=== PATIENT | female | born 1975 | race Caucasian/White ===

== ENCOUNTER → 2016-05-24 | Outpatient (CLI) | payer OTHER | LOC: FIMAGING 09:53 | PROVIDERS: ATTEND Advanced Practice Midwife | DX: O09.523 Supervision of elderly multigravida, third trimester (principal); Z3A.31 31 weeks gestation of pregnancy ==

== ENCOUNTER → 2016-06-21 | Outpatient (CLI) | payer OTHER | LOC: FIMAGING 10:01 | PROVIDERS: ATTEND Advanced Practice Midwife | DX: O09.523 Supervision of elderly multigravida, third trimester (principal); Z3A.33 33 weeks gestation of pregnancy ==

== ENCOUNTER 2016-07-26 12:30 | Inpatient (IN) | payer OTHER ==
--- NOTE | 2016-07-26 19:55 | GHP ---
[f rep st] HISTORY AND PHYSICAL DATE OF ADMISSION: 07/27/2016 HISTORY: The patient is a 40-year-old 6, para 4, with an EDC of 2016, who will be 39 weeks tomorrow on 07/27/2016, which is her scheduled 5th C- section. The patient has routinely been seen at [facility] since 8 weeks and 2 days, had an early bedside ultrasound that confirmed dates, an EDC of 08/03/2016. PAST MEDICAL HISTORY: The patient has a 6-month history of cystitis with a Paragard IUD, history of pyelonephritis in 2009, history of depression and anxiety. PAST SURGICAL HISTORY: C-sections x4, one in 2002, 2004, 2007, 2012. Two cysts removed from left wrist in 1996 and 1998, a T and A in 1997, and a right cyst removal from right wrist in 2012. PRESENT : See history. Patient is AMA. Rh negative, and needed a followup growth ultrasound at 36 weeks. PREVIOUS HISTORY: In 09/2002 a male at 7 pounds 6 ounces, 38 weeks, 32 hours , spinal, failure to progress, induced secondary to elevated blood pressure. In 12/2004 a female, weight 8 pounds at 40 weeks, a with a spinal, a repeat . In 09/2007, a female at 7 pounds 1 ounce 39 , 5, a , spinal. In 04/2011, an early spontaneous AB. In 03/2012 a female who weighed 7 pounds, 4 ounce at 39 weeks, a , that baby had an omphalocele. SOCIAL HISTORY: The patient is not a tobacco user. Denies drugs. Kristopher is her significant other and he is the father of all of her children. ALLERGIES: She is not allergic to any medications. MEDICATIONS: The medications that she is taking are vitamins, DHEA, and fish oil. FAMILY HISTORY: Noncontributory. LABORATORY DATA: The patient is O negative. Antibody negative. RPR is nonreactive. Rubella is immune. Hepatitis is negative. HIV is negative. Pap is within normal limits. Gonorrhea and chlamydia are negative. The patient declined AFP in the first-trimester screening, and patient had the Verifi done in her 2nd trimester. PHYSICAL ASSESSMENT: GENERAL: The patient is awake, alert, oriented x3. LUNGS : Clear bilaterally. ABDOMEN: Bowel sounds are positive in all 4 quadrants. EXTREMITIES: DTRs are 1+ bilaterally, no clonus, and Homans sign is negative bilaterally. PLAN OF CARE: Tomorrow on 07/27/2016, POC is a repeat . /[id number]/MODL MTDD
[2016-07-27] MEDS ORDERED: CITRIC ACID/SODIUM CITRATE 30 ML UDCUP PO ONE (08:08)
[2016-07-27] MEDS ORDERED: LR 500 ML IV ONE (08:08)
[2016-07-27] MEDS ORDERED: OLIVE OIL 118 ML BTL ONE (08:23)
[2016-07-27] MEDS ORDERED: LIDOCAINE 1% 300 MG/30 ML SDV ONE (08:23)
[2016-07-27] MEDS ORDERED: AMMONIA AROMATIC 1 EACH AMP IH ONE (08:23)
[2016-07-27] MEDS ORDERED: MISOPROSTOL 200 MCG TAB ONE (08:24)
[2016-07-27] MEDS ORDERED: CEFAZOLIN 2 GM/DEXTROSE/100 ML BAG IV ONE (08:24)
[2016-07-27 08:28] LABS: ADD DIFF? YES; ADD MORPH? NO; ADD SCAN? NO; ATYPICAL LYMPHOCYTE FLAG 10 (0-99); FRAGMENT RBC FLAG 0 (0-99); HEMATOCRIT 36.8 % (38.0-47.0); HEMOGLOBIN 12.5 g/dL (12.6-16.3); LEFT SHIFT FLG 30 (0-99); LIPEMIA HEMOLYSIS FLAG 90 (0-99); MEAN CELL HEMOGLOBIN 32.2 pg (27.9-34.1); MEAN CELL VOLUME 94.8 fL (81.5-99.8); PLATELET CLUMPS FLAG 0 (0-99); PLATELET COUNT 218 10^3/uL (150-400); RED BLOOD CELL COUNT 3.88 10^6/uL (4.18-5.33); RED CELL DISTRIBUTION WIDTH 14.2 % (11.5-15.2)
[2016-07-27] MEDS ORDERED: HEMABATE 250 MCG/1 ML AMP IM ONE (08:29)
[2016-07-27] MEDS ORDERED: METHYLERGONOVINE MAL 0.2 MG/ML INJ ONE (08:30)
[2016-07-27] MEDS ORDERED: ceFAZolin 2 GM/DEXTROSE 100 ML IV ONE (08:30)
--- NOTE | 2016-07-27 09:21 | PREANESOB ---
Obstetric Pre-Anesthesia Info - General Info Proposed Procedure: Repeat C Section. : 6 Para: 4 WBD: 39 - Info Status: Full Term Monitors: External FHR Baseline (bpm): 135 FHR Pattern: Reassuring - Labor Status Indications for Current Section: Elective/Repeat Labor Epidural: No Anesthesia ROS: Prior regional anesthesia. Patient reports occasional palpitations. Allergies/Adverse Reactions: Allergy/AdvReac Type Severity Reaction Status Date / Time No Known Allergies Allergy Unverified 07/27/16 08:08 Visit Medications: Generic Name Dose Route Start Last Admin Trade Name Freq PRN Reason Stop Dose Admin Lactated Ringer's 1,000 mls @ 125 mls/hr 07/27/16 08:30 Lr IV 01/23/17 08:29 CONT TEO Discontinued Medications Generic Name Dose Route Start Last Admin Trade Name Freq PRN Reason Stop Dose Admin Ammonia (Aromatic Spirit) Confirm 07/27/16 08:23 Ammonia Aromatic Administered 07/27/16 08:24 Dose 1 each IH .STK-MED ONE Carboprost Tromethamine Confirm 07/27/16 08:29 Hemabate Administered 07/27/16 08:30 Dose 250 mcg IM .STK-MED ONE Cefazolin Sodium/Dextrose Confirm 07/27/16 08:24 Ancef 2 Gm (Premix) Administered 07/27/16 08:25 Dose 2 gm IV .STK-MED ONE Citric Acid/Sodium Citrate 30 ml 07/27/16 08:08 Bicitra PO 07/27/16 08:09 ONCALL ONE Lactated Ringer's 500 mls @ 0 mls/hr 07/27/16 08:08 Lr IV 07/27/16 08:09 ONCE ONE As Directed Cefazolin Sodium/Dextrose 100 mls @ 200 mls/hr 07/27/16 08:30 Ancef 2 Gm (Premix) IV 07/27/16 08:59 ONCALL ONE Lidocaine HCl Confirm 07/27/16 08:23 Lidocaine Hcl 1% Administered 07/27/16 08:24 Dose 300 mg .ROUTE .STK-MED ONE Methylergonovine Maleate Confirm 07/27/16 08:30 Methergine Administered 07/27/16 08:31 Dose 0.2 mg .ROUTE .STK-MED ONE Misoprostol Confirm 07/27/16 08:24 Cytotec Administered 07/27/16 08:25 Dose 1,000 mcg .ROUTE .STK-MED ONE [place] Oil Confirm 07/27/16 08:23 Sweet Oil Administered 07/27/16 08:24 Dose 118 ml .ROUTE .STK-MED ONE - Anesthesia History Response to Local Anesthetics: Normal Anesthesia & Operative History: No Prior Problems Family Anesthesia History: Negative - Social History Substance Use/Abuse: Denies - Focused Exam Blood Pressure: 118/94 Heart Rate: 98 Respiratory Rate: 16 Height/Weight (Nursing): Height 160.02 cm Weight 82.554 kg Physical Exam: Within normal limits. ASA Status: II Labs: 07/27/16 08:15 - Plan Consent Signed and on Chart: Yes Patient/Guardian Understands and Agrees to Plan: Yes
[2016-07-27] MEDS: LR 1,000 ML IV SCH (09:24)
[2016-07-27] MEDS ORDERED: fentaNYL 100 MCG/2 ML INJ ONE (09:32)
[2016-07-27] MEDS ORDERED: morphINE PF 5 MG/10 ML INJ ONE (09:32)
[2016-07-27 10:03] LABS: PLATELET ESTIMATE ADEQUATE (ADEQ); POLYCHROMASIA 1+
[2016-07-27] MEDS ORDERED: ONDANSETRON 4 MG/2 ML VIAL ONE ×2 (10:05→10:29)
[2016-07-27] MEDS ORDERED: DEXAMETHASONE 4 MG/ML VIAL ONE ×2 (10:05→10:29)
[2016-07-27] MEDS ORDERED: OXYTOCIN 100 UNITS/10 ML VIAL ONE (10:17)
[2016-07-27] MEDS ORDERED: PHENYLEPHRINE HCL 100 MCG/ML SYR ONE (10:18)
[2016-07-27] MEDS ORDERED: METOCLOPRAMIDE 10 MG/2 ML VIAL ONE ×2 (10:29)
[2016-07-27] MEDS ORDERED: BISACODYL 10 MG SUPP PR PRN (11:55)
[2016-07-27] MEDS ORDERED: POLYETHYLENE GLYCOL 3350 17 GM PKT PO PRN (11:55)
[2016-07-27] MEDS ORDERED: MAGNESIUM HYDROXIDE 30 ML UDCUP PO PRN (11:55)
[2016-07-27] MEDS ORDERED: LACTULOSE 20 GM/30 ML UDCUP PO PRN (11:55)
--- NOTE | 2016-07-27 11:59 | OBDEL ---
Info Type: Repeat GBS+: No Number of Antibiotic Doses Given: 1 (preop) Operative Report - Delivery Pre-op Diagnoses: IUP at 39 wks, PCS x4, undesired fertility Post-op Diagnoses: same, delivered Nulliparous Prior to Delivery: No Presentation at Delivery: Vertex Procedure: Scheduled, Low Transverse, Other (Specify) (bilateral salpingectomies ) Surgeon: Pretty Ambrosio Branch Manager Trainee: Joslyn Guzman Anesthesiologist: Fernando Nunes Side Panel Padder/CAREER PORTALS TEACHER: Maritza Escamilla (CAREER PORTALS TEACHER) L&D Analgesia/Anesthesia Type: Spinal (with duramorph) Findings: normal uterus, ovaries and tubes. tight band from ant mid uterus to fascia - needed primary separation before delivery - visceral peritoneum reflected high to develop bladder flap. fascia is thickened scar. head difficult to rotate up through hysterotomy - mitivac used on occiput to help elevate - one gentle pull for delivery. vigorous on delivery. light mec fluid noted on amniotomy. placenta removed easily. good return of uterine tone. no extension of hysterotomy. additional figure of eight on left angle for hemostasis. cautery of ant scar tissue separation. tubes removed completely and vascular pedicles tied with o-vicryl and ends cauterized. surface skin scar indented and freed up at end of surgery with bovie - scarpas layer not sewn to help limit indention. 4-0 monocryl at SQ layer. Specimen(s)/Path: Fallopian Tube(s) IV Fluid (ml): 3,500 EBL: 800 [place] Data [place] Delivery Date: 07/27/16 Delivery Time: 10:33 CHASITY: 08/03/16 Gestational Age: 39 week(s) and 0 day(s) Sex of Infant: Male Weight (gm): 3812 g Score (1 Min): 8 Score (5 Min): 9 ICD10 Worksheet Patient Problems: Problems Problem Status Onset undesired fertility Acute History of section Acute
[2016-07-27] MEDS ORDERED: ONDANSETRON 4 MG/2 ML VIAL IVP PRN (12:06)
[2016-07-27] MEDS ORDERED: PHENYLEPHRINE HCL 100 MCG/ML SYR IVP PRN (12:06)
[2016-07-27] MEDS ORDERED: NALOXONE HCL 0.4 MG/ML INJ IVP PRN (12:06)
--- NOTE | 2016-07-27 12:12 | OBGCSDC ---
General Delivery Information - General Info : 6 Para: 4 Abortions: 1 Delivery Physician/CNM: Pretty Ambrosio Health And Nutrition Specialist: Joslyn Guzman Admission Date: 07/27/16 Labs: Patient ABO/Rh O NEGATIVE 07/27/16 08:15 Hct 36.8 % (38.0-47.0) L 07/27/16 08:15 Vaginal - Diagnosis Presentation at Delivery: Vertex - Operations/Procedures L&D Analgesia/Anesthesia Type: Spinal (with duramorph) - Delivery Number of Prior Sections: 4 Indications for Prior Section: Arrest of Dilation (first, scheduled RCS for 2nd, 3rd and scheduled at [facility] for Omphalocele with 4th) Indications for Current Section: Elective/Repeat Type: Repeat Surgical Procedures: Scheduled, Low Transverse, Other (Specify) (bilateral salpingectomies) Intra-op Complications: Other (Specify) (scar from ant mid uterine serosa to ant fascia in thick band) EBL: 800 L&D Analgesia/Anesthesia Type: Spinal (with duramorph) - Hospital Course Antepartum: Anxiety for well being, growth U/S in third trimester normal Data [place] Delivery Date: 07/27/16 Delivery Time: 10:33 CHASITY: 08/03/16 Gestational Age: 39 week(s) and 0 day(s) Sex of Infant: Male Weight (gm): 3812 g Score (1 Min): 8 Score (5 Min): 9
[2016-07-27] MEDS ORDERED: SCOPOLAMINE HYDROBROMIDE 1.5 MG PATCH TD PRN ×2 (12:15)
--- NOTE | 2016-07-27 12:15 | POSTANESTH ---
Post Anesthetic Evaluation Cardiovascular Status: Normal, Stable Respiratory Status: Normal, Stable, Similar to Pre-op Cond. Level of Consciousness/Mental Status: Can Participate in Eval, Alert and Oriented (Tolerated spinal well, BP treated, comfortable for surgery, to PACU, no pain or nausea.) Pain Control: Adequate, Prn Tx Ordered Nausea/Vomiting Control: Adequate, Prn Tx Ordered Complications Possibly Related to Anesthesia: None Noted
[2016-07-27] MEDS: KETOROLAC 30 MG/1 ML SDV IVP SCH ×2 (14:52→21:36)
--- NOTE | 2016-07-27 17:35 | SOAPPROG ---
SOAP Progress Note Assessment/Plan: Assessment: p5 pod# 0 s/p RLTCS with bilateral salpingectomy Plan: routine post operative and post care 07/27/16 17:33 Subjective: patient is doing well. pain is well controlled. occasionally sweaty and nausea /vomiting. denies headache and changes in vision. breast feeding is going well. normal lochia. Objective: Vital Signs Temp Pulse Resp BP Pulse Ox 36.6 C 77 16 106/71 95 07/27/16 16:30 07/27/16 16:30 07/27/16 16:30 07/27/16 16:30 07/27/16 15:40 Laboratory Results 07/27/16 08:15 07/26/16 07/27/16 07/28/16 05:59 05:59 05:59 Intake Total 4000 Output Total 1150 Balance 2850 Physical Exam - Physical Exam General Appearance: WD/WN, alert, no apparent distress Neck: non-tender, full range of motion Respiratory: chest non-tender, lungs clear, normal breath sounds Cardiac/Chest: normal peripheral pulses, regular rate, rhythm Abdomen: normal bowel sounds, non-tender, soft Skin: normal color, warm/dry Extremities: normal range of motion, non-tender, normal inspection, normal capillary refill Neuro/Psych: no motor/sensory deficits, alert, normal mood/affect, oriented x 3 ICD10 Worksheet Patient Problems: Problems Problem Status Onset History of section Acute undesired fertility Acute
[2016-07-27] MEDS: SENNOSIDES/DOCUSATE SODIUM TAB PO SCH (21:36)
[2016-07-28] MEDS: KETOROLAC 30 MG/1 ML SDV IVP SCH ×2 (03:43→13:09)
[2016-07-28] MEDS: LR 1,000 ML IV SCH (04:32)
--- NOTE | 2016-07-28 07:52 | OBPP ---
Progress Note Assessment/Plan: Assessment: 1) s/p RCS, b/l salpingectomy POD # 1 - pt is stable 2) Anemia - pt is asymptomatic 3) Rh negative - Rhogam eval Plan: Continue routine pp care Encourage ambulation Dressing to be removed this am Patient may shower Sin to be removed this am Start po meds as ordered Will start iron BID Plan for d/c home in 24-48 hrs 07/28/16 07:53 Subjective: Pt seen and examined. Doing well, no complaints. Pain is well controlled. Pt is OOB, heena regular diet, sin in place, passing flatus. No BM. Mild lochia. Denies any f/c/n/v/CP or SOB. She vomited twice yesterday prior to eating. BF without difficulty so far. Objective: 07/28/16 04:06 Patient ABO/Rh O NEGATIVE 07/27/16 08:15 Temp Pulse Resp BP Pulse Ox 37.2 C 71 16 91/44 L 92 07/28/16 03:45 07/28/16 03:45 07/28/16 03:45 07/28/16 03:55 07/28/16 03:45 Uterine Position/Fundal Height: Umbilicus -1 Uterine Tone: Firm Physical Exam - Physical Exam General Appearance: WD/WN, alert, no apparent distress Respiratory: lungs clear, normal breath sounds Cardiac/Chest: regular rate, rhythm Abdomen: normal bowel sounds, non-tender, soft, flatus (+), incision (C/D/I), dressing (In place, intact and dry) Extremities: non-tender, normal inspection Neuro/Psych: alert, normal mood/affect, oriented x 3
[2016-07-28] MEDS: IRON POLYSAC/IRON HEME 28 MG TAB PO SCH ×2 (10:07→21:26)
[2016-07-28] MEDS: SENNOSIDES/DOCUSATE SODIUM TAB PO SCH ×2 (10:07→20:48)
[2016-07-28] MEDS: IBUPROFEN 600 MG TAB PO PRN ×3 (10:08→22:28)
[2016-07-28] MEDS: HYDROCODONE/APAP 5/325 TAB PO PRN ×2 (12:52→20:53)
[2016-07-29] MEDS: IBUPROFEN 600 MG TAB PO PRN ×3 (04:54→18:19)
[2016-07-29] MEDS: HYDROCODONE/APAP 5/325 TAB PO PRN ×4 (07:37→19:56)
--- NOTE | 2016-07-29 11:18 | OBPP ---
Progress Note Assessment/Plan: Assessment: POD 2 s/p RCSx5 with BS Plan: D/C home when desired. routine care 07/29/16 11:15 Subjective: Pt doing well. Pain controlled well with ibu and [place]. urinating fine. bleeding is light. Baby is latching great. Unsure if she wants D/C today. Objective: 07/28/16 04:06 Patient ABO/Rh O NEGATIVE 07/27/16 08:15 Temp Pulse Resp BP Pulse Ox 36.7 C 75 17 106/70 94 07/29/16 08:35 07/29/16 08:35 07/29/16 08:35 07/29/16 08:35 07/29/16 08:35 Uterine Position/Fundal Height: Umbilicus -1 Physical Exam - Physical Exam General Appearance: WD/WN, alert, no apparent distress Abdomen: non-tender (approp post op tenderness), soft, other (bleeding is normal lochia) Extremities: non-tender, pedal edema (moderate) Neuro/Psych: normal mood/affect
--- NOTE | 2016-07-29 11:51 | OBGCSDC ---
General Delivery Information - General Info : 6 Para: 4 Abortions: 1 Delivery Physician/CNM: Pretty Ambrosio Humanities Teacher: Joslyn Guzman Admission Date: 07/27/16 Labs: Patient ABO/Rh O NEGATIVE 07/27/16 08:15 Hct 30.0 % (38.0-47.0) L 07/28/16 04:06 Vaginal - Diagnosis Presentation at Delivery: Vertex - Operations/Procedures L&D Analgesia/Anesthesia Type: Spinal (with duramorph) - Delivery Number of Prior Sections: 4 Indications for Prior Section: Elective/Repeat (first - arrest of labor , 2nd and 3rd repeat, 4th at [facility] for omphalocele) Indications for Current Section: Elective/Repeat Type: Repeat Surgical Procedures: Scheduled, Low Transverse, Other (Specify) (bilateral salpingectomies) Intra-op Complications: Other (Specify) (scar from ant mid uterine serosa to ant fascia in thick band) EBL: 800 L&D Analgesia/Anesthesia Type: Spinal (with duramorph) - Hospital Course Antepartum: anxiety about well being, growth ultrasound in third trimester : POD 2 - doing well on [place] 1 q 4 hrs and ibu. BF fine, normal bleeding [place] [facility] [place] Delivery Date: 07/27/16 Delivery Time: 10:33 CHASITY: 08/03/16 Gestational Age: 39 week(s) and 2 day(s) Sex of Infant: Male [place] Weight (gm): 3812 g Score (1 Min): 8 Score (5 Min): 9 Discharge Information - Discharge Information Condition: Good
[2016-07-29] MEDS: SENNOSIDES/DOCUSATE SODIUM TAB PO SCH (15:24)
[2016-07-29] MEDS: IRON POLYSAC/IRON HEME 28 MG TAB PO SCH (15:24)
[2016-07-29 21:01] VITALS: RESP 18; O2SAT 97
[2016-07-30] MEDS: IBUPROFEN 600 MG TAB PO PRN ×2 (01:10→08:54)
[2016-07-30] MEDS: HYDROCODONE/APAP 5/325 TAB PO PRN ×2 (01:11→06:16)
[2016-07-30] MEDS: SENNOSIDES/DOCUSATE SODIUM TAB PO SCH ×2 (01:14→08:55)
[2016-07-30] MEDS: IRON POLYSAC/IRON HEME 28 MG TAB PO SCH ×2 (01:14→08:55)
[2016-07-30 09:15] VITALS: BP 133/87; PULSE 66; TEMP 97.9
--- NOTE | 2016-07-30 10:08 | OBPP ---
Progress Note Assessment/Plan: Assessment: 40 y/o POD #3 s/p Rpt LTCS and BS Plan: D/c home with Rx [place], Ibuprofen. Follow-up @ 2, 4 and 6 weeks. Call for fever, heavy vaginal bleeding, mastitis or any other concerns. 07/30/16 10:05 Subjective: Pt is doing well this am. She has good pain control with Ibuprofen, and [place]. She is ambulating, voiding without difficulty and has min lochia. She is working on breast feeding and baby is doing well. She is ready to d/c home. Objective: 07/28/16 04:06 Patient ABO/Rh O NEGATIVE 07/27/16 08:15 Temp Pulse Resp BP Pulse Ox 36.6 C 66 18 133/87 H 97 07/30/16 08:10 07/30/16 08:10 07/30/16 08:10 07/30/16 08:10 07/30/16 08:10 Uterine Position/Fundal Height: Umbilicus -2 Uterine Tone: Firm Physical Exam - Physical Exam General Appearance: WD/WN, alert, no apparent distress Neck: non-tender, full range of motion, supple Respiratory: chest non-tender, lungs clear, normal breath sounds Cardiac/Chest: regular rate, rhythm Abdomen: incision (c/d/i) Extremities: swelling (no), Suhas's sign (neg)
== END 2016-07-30 12:00 | disposition home or self-care (01) | DRG 766 ==
LOC: FLD 07-27 07:42 → FOB 07-27 13:20
PROVIDERS: ADMIT Obstetrics & Gynecology; ATTEND Obstetrics & Gynecology
PROC: 0UB70ZZ Excision of Bilateral Fallopian Tubes, Open Approach (ICD-10-PCS; principal; 2016-07-27)
PROC: 10D00Z1 Extraction of Products of Conception, Low, Open Approach (ICD-10-PCS; principal; 2016-07-27)
DX: O34.211 Maternal care for low transverse scar from previous cesarean delivery (principal); Z3A.39 39 weeks gestation of pregnancy; Z37.0 Single live birth; Z30.2 Encounter for sterilization
CPT/HCPCS: J0690; J1100; J1885; J2210; J2274; J2370; J2405; J2590; J2765; J3010